=== PATIENT | male | born 1985 | race Caucasian/White ===

== ENCOUNTER 2023-02-16 15:53 | Emergency (ER) | payer MEDICAID, OTHER ==
[~2023-02-16] VITALS: Ht 175.3 cm; Wt 65.7 kg
[2023-02-16] MEDS ORDERED: sterile talc powder 5 GM, BUPIVAcaine 0.5% inj/PF 37.5 MG in normal saline 50ml IV soln... IPL ONE (16:35)
[2023-02-16] MEDS ORDERED: amox tr/potassium clavulanate 875/125mg TAB PO ONE (16:35)
[2023-02-16] MEDS ORDERED: BUPIVAcaine/PF 7.5 mg/ml (0.75%) 30ml vial IJ ONE (16:45)
[2023-02-16] MEDS ORDERED: LIDOcaine 1%/PF 5ML 10 MG/ML VIAL IJ ONE (16:45)
[2023-02-16] MEDS ORDERED: AMOX-117 PO (17:09)
[2023-02-16] MEDS ORDERED: HYDROcodone/acetaminophen 5mg/325mg tablet PO ONE (17:30)
[2023-02-16 17:34] VITALS: BP 132/94; PULSE 83; RESP 18; TEMP 98; O2SAT 99
--- NOTE | 2023-02-16 18:53 | NUR ---
I AGREE WITH THE ASSESSMENT OF Lashonda ABRAMS LVN.
== END 2023-02-16 17:48 | disposition home or self-care (01) ==
LOC: ER 15:54
DX: K04.7 Periapical abscess without sinus (principal)
CPT/HCPCS: 64400; 99284